=== PATIENT | female | born 1965 | race Caucasian/White ===

== ENCOUNTER 2020-11-22 21:37 | Emergency (ER) | payer BC ==
[~2020-11-22] VITALS: Ht 157.5 cm; Wt 52.6 kg
[2020-11-22] MEDS ORDERED: ONDANSETRON HCL 4 MG ORAL DISINTEGRATING TAB PO STA (22:02)
[2020-11-22] MEDS ORDERED: KETOROLAC TROMETHAMINE 60 MG/2 ML VIAL IM ONE (22:15)
[2020-11-22] MEDS ORDERED: KETOROLAC TROMETHAMINE 60 MG/2 ML VIAL ONE (22:17)
[2020-11-22] MEDS ORDERED: ONDANSETRON HCL 4 MG ORAL DISINTEGRATING TAB ONE (22:20)
[2020-11-22] MEDS ORDERED: LEVOFLOXACIN 500 MG TAB PO STA (23:37)
[2020-11-22] MEDS ORDERED: MOTRIN200 MG PO (23:43)
[2020-11-22] MEDS ORDERED: CIPRO500 MG PO (23:43)
== END 2020-11-23 00:12 | disposition home or self-care (01) ==
LOC: FSED 22:00
DX: N39.0 Urinary tract infection, site not specified (principal); R11.0 Nausea; K76.9 Liver disease, unspecified
CPT/HCPCS: 74176; 81003; 96372; 99283; J1885; Q0162